=== PATIENT | male | born 1960 | race Caucasian/White ===

== ENCOUNTER 2017-06-19 18:22 | Emergency (ER) | payer BC, OTHER ==
[~2017-06-19] VITALS: Ht 180.3 cm; Wt 108.0 kg
[~2017-06-19 18:22] MED LIST: ALLOPURINOL300 MG PO; COLCRYS0.6 MG PO; DITROPAN XL5 MG PO; LEVAQUIN250 MG PO; PREDNISONE10 MG PO; TYLENOL WITH C1 EACH PO
--- OUTSIDE RECORDS SUMMARY | 2017-06-19 18:26 | XMS REPORT | Clinical Summary ---
Author Author [facility] Address Unknown Phone Unavailable Care Team Providers Care Jewelry Mechanic Name Role Phone Frederick Gold MD PCP Allergies Active Allergy Reactions Severity Noted Date Comments Penicillins 04/04/2017 Current Medications Prescription Sig. Disp. Refills Start End Date Status Date allopurinol (ZYLOPRIM) TK ONE AND SS TS PO ONCE 11 03/09/20 Active 300 MG tablet D 17 predniSONE (DELTASONE) 5 TK 1 T PO QD PRN 0 03/30/20 Active mg tablet 17 nabumetone (RELAFEN) 500 Take 1 tablet (500 mg 60 tablet 1 04/20/20 04/20/20 Active MG tablet total) by mouth 2 (two) 17 18 times a day. 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 04/04/2017 Procedure Pass Radiology after 06/18/2016 Family History Medical History Relation Name Comments Cancer Father Cancer Mother Relation Name Status Comments Father Mother Social History Tobacco Use Types Packs/Day Years Used Date Never Smoker Smokeless Tobacco: Never Used Alcohol Use Drinks/Week oz/Week Comments No Sex Assigned at Date Recorded Not on file Last Filed Vital Signs Vital Sign Reading Time Taken Blood Pressure 150/80 04/20/2017 11:22 AM FIREPROOF DOOR ASSEMBLER Pulse 75 04/20/2017 11:22 AM FIREPROOF DOOR ASSEMBLER Temperature - - Respiratory Rate - - Oxygen Saturation - - Inhaled Oxygen - - Concentration Weight 103 kg (228 lb) 04/20/2017 11:22 AM FIREPROOF DOOR ASSEMBLER Height 180.3 cm (5' 11") 04/20/2017 11:22 AM FIREPROOF DOOR ASSEMBLER Body Mass Index 31.8 04/20/2017 11:22 AM FIREPROOF DOOR ASSEMBLER Plan of Treatment Health Maintenance Due Date Last Done Comments COLONOSCOPY 2009 INFLUENZA VACCINE 12/05/2016 Results * MRI Knee Right Wo Contrast (04/11/2017 3:22 PM) Specimen Performing Laboratory [facility] [id number] [place] [address] Narrative EXAMINATION:MRI KNEE WO CONTRAST RIGHT CLINICAL HISTORY:M25.561 Pain in right knee, KNEE PAIN TECHNIQUE:Multiplanar multisequence MR imaging of lino was performed without contrast. COMPARISON:Radiograph, 04/04/2017 IMPRESSION: CRUCIATE LIGAMENTS: Interstitial abnormal signal in the middle one third of the PCL, relatively well-maintained proximally and distally, and a history of gout, is likely related to degeneration from gout arthropathy. Mild mucoid degeneration distally in the ACL. Extensive high-grade partial tearing of the popliteus tendon, with adjacent nodular synovitis likely on the basis of gout arthropathy. COLLATERAL LIGAMENTS: Mild MCL sprain. Mild to moderate sprain of the proximal attachment fibular collateral ligament. Remainder of the LCL complex well- maintained. MEDIAL COMPARTMENT: Maceration of the anterior peripheral margin of anterior horn medial meniscus. Truncation of the free edge centrally in the posterior horn indicating partial meniscectomy. No recurrent tear identified. Mild marginal osteophytosis. Deep chondral fissuring centrally in the weightbearing medial femoral condyle and several places contacting the cortical surface, though marrow signals are well-maintained. Less pronounced chondral fissuring in the medial tibial plateau. LATERAL COMPARTMENT: Type I intrasubstance degeneration of the posterior root attachment of lateral meniscus. No discrete tear identified. Marginal osteophytosis, and mild chondral fissuring, less pronounced than in the medial compartment. PATELLOFEMORAL COMPARTMENT:Focal partial-thickness chondral defect centrally in the lateral patellar facet measuring 12 mm transverse by 8 mm craniocaudal. Marrow signals are well-maintained. Less pronounced chondral fissuring elsewhere, and moderate marginal osteophytosis. EXTENSOR MECHANISM: Distal quadriceps tendinitis with mild partial thickness interstitial tearing partially visualized. Patellar tendon well-maintained. BONE MARROW: Cystic formation posteriorly and peripherally in the medial tibial plateau degenerative in etiology. Cystic formation peripherally in the lateral femoral condyle subjacent to the popliteus tendon origin related to the findings discussed above. 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 PERIARTICULAR SOFT TISSUES: Small to moderate joint effusion with nodular synovitis. Synovitis is most pronounced anteriorly and peripherally in the medial compartment. Cruz's cyst containing some internal debris or synovitis measuring 7 cm in length. SUMMARY: 1.Maceration of the medial meniscus anterior horn, and meniscectomy defect in the posterior horn, though without a recurrent tear identified. 2.Multifocal areas of chondromalacia, in a distribution as above 3.Findings as detailed above related to gout arthropathy. [facility]-[id number] Procedure Note Interface, Radiology Results Incoming - 04/11/2017 3:44 PM FIREPROOF DOOR ASSEMBLER EXAMINATION: MRI KNEE WO CONTRAST RIGHT CLINICAL HISTORY: M25.561 Pain in right knee, KNEE PAIN TECHNIQUE: Multiplanar multisequence MR imaging of the right knee was performed without contrast. COMPARISON: Radiograph, 04/04/2017 IMPRESSION: CRUCIATE LIGAMENTS: Interstitial abnormal signal in the middle one third of the PCL, relatively well-maintained proximally and distally, and a history of gout, is likely related to degeneration from gout arthropathy. Mild mucoid degeneration distally in the ACL. Extensive high-grade partial tearing of the popliteus tendon, with adjacent nodular synovitis likely on the basis of gout arthropathy. COLLATERAL LIGAMENTS: Mild MCL sprain. Mild to moderate sprain of the proximal attachment fibular collateral ligament. Remainder of the LCL complex well- maintained. MEDIAL COMPARTMENT: Maceration of the anterior peripheral margin of anterior horn medial meniscus. Truncation of the free edge centrally in the posterior horn indicating partial meniscectomy. No recurrent tear identified. Mild marginal osteophytosis. Deep chondral fissuring centrally in the weightbearing medial femoral condyle and several places contacting the cortical surface, though marrow signals are well-maintained. Less pronounced chondral fissuring in the medial tibial plateau. LATERAL COMPARTMENT: Type I intrasubstance degeneration of the posterior root attachment of lateral meniscus. No discrete tear identified. Marginal osteophytosis, and mild chondral fissuring, less pronounced than in the medial compartment. PATELLOFEMORAL COMPARTMENT: Focal partial-thickness chondral defect centrally in the lateral patellar facet measuring 12 mm transverse by 8 mm craniocaudal. Marrow signals are well-maintained. Less pronounced chondral fissuring elsewhere , and moderate marginal osteophytosis. EXTENSOR MECHANISM: Distal quadriceps tendinitis with mild partial thickness interstitial tearing partially visualized. Patellar tendon well-maintained. BONE MARROW: Cystic formation posteriorly and peripherally in the medial tibial plateau degenerative in etiology. Cystic formation peripherally in the lateral femoral condyle subjacent to the popliteus tendon origin related to the findings discussed above. 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 PERIARTICULAR SOFT TISSUES: Small to moderate joint effusion with nodular synovitis. Synovitis is most pronounced anteriorly and peripherally in the medial compartment. Cruz's cyst containing some internal debris or synovitis measuring 7 cm in length. SUMMARY: 1. Maceration of the medial meniscus anterior horn, and meniscectomy defect in the posterior horn, though without a recurrent tear identified. 2. Multifocal areas of chondromalacia, in a distribution as above 3. Findings as detailed above related to gout arthropathy. [facility]-[id number] * XR Knee 3 Vw Right (04/04/2017 3:30 PM) [facility] [address] [place] [address] Narrative X-rays of the right knee 3 views standing AP lateral sunrise view: X-rays right knee does show mild to moderate osteoarthritis medial compartment with some narrowing there but joint space is still reasonably spared there is mild to moderate changes patellofemoral compartment with mild spurring. after 06/18/2016 Insurance Payer Benefit Subscriber ID Type Phone Address Plan / Group BCBS BCBS OUT xxxxxxxxxxxxxxx PPO OF STATE Work: [id number] [place] [id number] Home:
[2017-06-19] MEDS ORDERED: HYDROCODONE/APAP 5MG-325MG TAB PO ONE (19:30)
[2017-06-19] MEDS ORDERED: CLINDAMYCIN PHOS 600 MG/ 4 ML VIAL IM ONE (20:00)
[2017-06-19 20:53] VITALS: BP 136/80
== END 2017-06-19 20:40 | disposition home or self-care (01) ==
LOC: FSED 18:22
DX: S67.194A Crushing injury of right ring finger, initial encounter (principal); S61.214A Laceration without foreign body of right ring finger without damage to nail, initial encounter; W23.0XXA Caught, crushed, jammed, or pinched between moving objects, initial encounter; Y92.009 Unspecified place in unspecified non-institutional (private) residence as the place of occurrence of the external cause
CPT/HCPCS: 96372; 99284

== ENCOUNTER 2017-10-10 13:59 | Inpatient (IN) | payer BC ==
[~2017-10-10] VITALS: Ht 180.3 cm; Wt 105.9 kg
--- OUTSIDE RECORDS SUMMARY | 2017-10-10 14:03 | XMS REPORT | Clinical Summary ---
Author Author [facility] Address Unknown Phone Unavailable Care Team Providers Care Wheel Inspector Name Role Phone Frederick Gold MD PCP [...] without tophus 04/04/2017 Procedure Pass Radiology after 10/09/2016 Family History Medical History Relation Name Comments Cancer Father Cancer Mother Relation Name Status Comments Father Mother Social History Tobacco Use Types Packs/Day Years Used Date Never Smoker Smokeless Tobacco: Never Used Alcohol Use Drinks/Week oz/Week Comments No Sex Assigned at Date Recorded Not on file Last Filed Vital Signs Vital Sign Reading Time Taken Blood Pressure 150/80 04/20/2017 11:22 AM GRAIN BROKER AND MARKET OPERATOR Pulse 75 04/20/2017 11:22 AM GRAIN BROKER AND MARKET OPERATOR Temperature - - Respiratory Rate - - Oxygen Saturation - - Inhaled Oxygen - - Concentration Weight 103 kg (228 lb) 04/20/2017 11:22 AM GRAIN BROKER AND MARKET OPERATOR Height 180.3 cm (5' 11") 04/20/2017 11:22 AM GRAIN BROKER AND MARKET OPERATOR Body Mass Index 31.8 04/20/2017 11:22 AM GRAIN BROKER AND MARKET OPERATOR Plan of Treatment Health Maintenance Due Date Last Done Comments COLON CANCER SCREENING 2009 SHINGRIX VACCINE (#1) 2009 INFLUENZA VACCINE 12/05/2017 Results * MRI Knee Right Wo Contrast (04/11/2017 3:22 PM) Specimen Performing Laboratory [facility] [address] [facility] [address] Narrative EXAMINATION:MRI KNEE WO CONTRAST RIGHT CLINICAL [...] as detailed above related to gout arthropathy. [facility]-[id number] Procedure Note Hm Interface, Radiology Results Incoming - 04/11/2017 3:44 PM GRAIN BROKER AND MARKET OPERATOR EXAMINATION: MRI KNEE WO CONTRAST RIGHT CLINICAL [...] as detailed above related to gout arthropathy. [facility]-[id number] * XR Knee 3 Vw Right (04/04/2017 3:30 PM) Specimen Performing Laboratory [facility] [address] [place] [address] Narrative X-rays of the right knee 3 views standing AP lateral sunrise view: X-rays right knee does show mild to moderate osteoarthritis medial compartment with some narrowing there but joint space is still reasonably spared there is mild to moderate changes patellofemoral compartment with mild spurring. after 10/09/2016 Insurance Payer Benefit Subscriber ID Type Phone Address Plan / Group BCBS BCBS OUT xxxxxxxxxxxxxxx PPO OF STATE Home:
--- OUTSIDE RECORDS SUMMARY | 2017-10-10 14:03 | XMS REPORT | Continuity of Care Document ---
Author Author [facility] Organization [facility] Address [address] [place] [address] Phone Unavailable Care Team Providers Care Compensation Supervisor Name Role Phone NO, PCP PCP Unavailable Insurance Providers Guarantor Janiya Leigh Address [address] [place] [address] Email PTDECLINED [facility] Codacy Other Policy Number [id number] Subscriber's Name Janiya Leigh Relationship 01 Group Number [id number] Group Name [facility] Effective Date 14 Advance Directives Directive Response Recorded Date/Time Does the patient have an advance directive? No 12/12/14 11:20pm If yes, is advance directive on file with [facility]? No 12/12/14 11:20pm If not on file with [facility] will patient provide a copy? No 12/12/14 11:20pm Do you have a Directive to Physician? No 06/19/17 7:31pm Do you have a Medical Power of Synchro Assembler? No 06/19/17 7:31pm Do you have an out of hospital Do Not Resuscitate Order? No 06/19/17 7:31pm Do you have any special needs we should be aware of? No 06/19/17 7:31pm Do you have a support person here with you today? No 06/19/17 7:31pm Did patient receive Notice of Privacy Practices? Yes 06/19/17 7:31pm Did patient receive patient rights and responsibilities? Yes 06/19/17 7:31pm Problems Medical Problem Onset Date Status Bilateral ureteral calculi 12/12/2014 Acute Bilateral ureteral obstruction 12/12/2014 Acute Medications Current Home Medications Medication Dose Units Route Directions Days Qty Instructions Start Date Acetaminophen With Codeine (Tylenol With Codeine #3 Tablet) 1 Each Tablet 300 Mg Oral Every 4 Hours as needed for Pain Allopurinol 300 Mg Tablet 450 Mg Oral Daily Colchicine (Colcrys) 0.6 Mg Tablet 0.6 Mg Oral Daily as needed for 30 Tab Levofloxacin (Levaquin) 250 Mg Tablet 250 Mg Oral Daily 30 Tab Oxybutynin Chloride (Ditropan Xl) 5 Mg Tab.er.24 10 Mg Oral Daily 30 Tab Prednisone 10 Mg Tab 10 Mg Oral Daily as needed for flare up of gout Social History Social History Problem Response Recorded Date/Time Onset Date Status Hx Psychiatric Problems No 12/12/2014 11:20pm Not Applicable Not Applicable Hx Eating Disorder No 10/01/2012 8:15pm Not Applicable Not Applicable Hx Substance Use Disorder No 10/01/2012 8:15pm Not Applicable Not Applicable Hx Depression No 10/01/2012 8:15pm Not Applicable Not Applicable Hx Alcohol Use No 10/01/2012 8:15pm Not Applicable Not Applicable Hx Substance Use Treatment No 10/01/2012 8:15pm Not Applicable Not Applicable Hx Physical Abuse No 10/01/2012 8:15pm Not Applicable Not Applicable Hospital Discharge Instructions No hospital discharge instruction information available. Plan of Care Discharge Date 06/19/17 8:40pm Disposition HOME, SELF-CARE Condition at Discharge Stable Instructions/Education Provided Laceration Forms Provided Work/School Excuse Prescriptions See Medication Section Additional Instructions/Education Keep area clean and dry. Elevate, for comfort. Apply antibiotic ointment liberally to the laceration, twice daily, and cover. Return here in 7-10 days for suture removal. Functional Status No functional status information available. Allergies, Adverse Reactions, Alerts Allergen Type Severity Reaction Status Last Updated Penicillin Allergy Unknown Active 01/29/09 Immunizations No immunization information available. Vital Signs Acute Vital Signs Vital Response Date/Time Pulse Pulse Rate (adult) 97 bpm (60 - 90) 06/19/2017 8:53pm Respiratory Rate 16 bpm (12 - 24) 06/19/2017 8:53pm Blood Pressure 136/80 mm Hg 06/19/2017 8:53pm Height 5 ft 11 in 06/19/2017 7:00pm Weight 238 lb 06/19/2017 7:00pm Body Mass Index 33.2 kg/m^2 06/19/2017 7:00pm Results No relevant diagnostic test, laboratory data and/or discharge summary information available. Procedures No procedure information available. Encounters Encounter Location Arrival/Admit Date Discharge/Depart Date Attending Provider Departed Emergency Room [facility] 06/19/17 6:22pm 8:40pm BRI MAXWELL MD
[2017-10-10] MEDS ORDERED: ASPIRIN 81 MG CHEW TAB PO ONE ×3 (14:15→22:30)
--- NOTE | 2017-10-10 15:10 | Diagnostic Imaging Report ---
PROCEDURE: Frontal and lateral views of the chest. COMPARISON: None. INDICATIONS: LOW HEART RATE, SOB FINDINGS: Lines/tubes: None. Lungs: Limited by low lung volumes. There is no evidence of pneumonia or pulmonary edema. Pleura: There is no pleural effusion or pneumothorax. Heart and mediastinum: The heart and the mediastinum are normal. Bones: No acute bony abnormality. IMPRESSION: 1. No acute cardiopulmonary disease. Dictated by: Eber Lynch M.D. on 10/10/2017 at 15:13 Electronically approved by: Eber Lynch M.D. on 10/10/2017 at 15:13
[2017-10-10 15:29] LABS: CLARITY,URINE CLEAR (CLEAR); COLOR,URINE YELLOW (YELLOW)
[2017-10-10 15:30] LABS: BILIRUBIN,URINE NEGATIVE (NEGATIVE); KETONES,URINE NEGATIVE (NEGATIVE); LEUKOCYTE ESTERASE ,URINE NEGATIVE (NEGATIVE); NITRITE,URINE NEGATIVE (NEGATIVE); PROTEIN,URINE DIPSTICK NEGATIVE (NEGATIVE); URINE UROBILINOGEN 0.2 mg/dL (0.2 - 1)
[2017-10-10 15:44] LABS: EPITHELIAL CELLS,URINE RARE /LPF; WBC,URINE (MAN) 0-5 /HPF (0-5)
[2017-10-10 15:47] LABS: BASOPHILS % 0.4 % (0.0-1.0); EOSINOPHILS # (AUTO) 0.3 (0.0-0.4); EOSINOPHILS % 3.7 % (0.0-6.0); HEMATOCRIT 39.8 % (38.2-49.6); LYMPHOCYTES # (AUTO) 2.3 (1.0-3.2); LYMPHOCYTES % 28.2 % (18.0-39.1); MEAN CORPUSCULAR HGB CONC 35.2 g/dL (31-35); MEAN CORPUSCULAR VOLUME 88.1 fL (81-99); MONOCYTES # (AUTO) 0.7 (0.2-0.8); MONOCYTES % 8.5 % (4.4-11.3); NEUTROPHILS # (AUTO) 4.7 (2.1-6.9); NEUTROPHILS % 58.7 % (38.7-80.0); PLATELET COUNT 282 x10e3/uL (140-360); RED BLOOD COUNT 4.52 x10e6/uL (4.3-5.7); RED CELL DISTRIBUTION WIDTH 12.7 % (11.7-14.4)
[2017-10-10 15:54] LABS: PROTHROMBIN TIME 12.4 seconds (11.9-14.5)
[2017-10-10 15:55] LABS: PARTIAL THROMBOPLASTIN TIME 30.1 seconds (23.8-35.5)
[2017-10-10 16:19] LABS: ALANINE AMINOTRANSFERASE 18 IU/L (0-55); ALBUMIN 3.8 g/dL (3.5-5.0); ALBUMIN/GLOBULIN RATIO 1.3 (0.8-2.0); ALKALINE PHOSPHATASE 50 IU/L (40-150); ANION GAP 7.9 mmol/L (8-16); BLOOD UREA NITROGEN 16 mg/dL (7-26); BUN/CREATININE RATIO 14 (6-25); CALCIUM 9.2 mg/dL (8.4-10.2); CARBON DIOXIDE 30 mmol/L (22-29); CHLORIDE 107 mmol/L (98-107); CREATINE KINASE 48 IU/L (30-200); CREATININE, SERUM 1.15 mg/dL (0.72-1.25); EST GLOMERULAR FILTRATION RATE > 60 ML/MIN (60-); GLUCOSE 103 mg/dL (74-118); POTASSIUM 3.9 mmol/L (3.5-5.1); SODIUM 141 mmol/L (136-145)
[2017-10-10] MEDS ORDERED: ONDANSETRON HCL 4 MG ORAL DISINTEGRATING TAB PO PRN (18:15)
[2017-10-10] MEDS ORDERED: NITROGLYCERIN 0.4 MG SUBL SL PRN (18:15)
--- OUTSIDE RECORDS SUMMARY | 2017-10-10 18:24 | XMS REPORT | Clinical Summary ---
Author Author [facility] Address Unknown Phone Unavailable Care Team Providers Care Conveyor Tender Name Role Phone Frederick Gold MD PCP [...] Taken Blood Pressure 150/80 04/20/2017 11:22 AM PUBLIC HOUSING INTERVIEWER Pulse 75 04/20/2017 11:22 AM PUBLIC HOUSING INTERVIEWER Temperature - - Respiratory Rate - - Oxygen Saturation - - Inhaled Oxygen - - Concentration Weight 103 kg (228 lb) 04/20/2017 11:22 AM PUBLIC HOUSING INTERVIEWER Height 180.3 cm (5' 11") 04/20/2017 11:22 AM PUBLIC HOUSING INTERVIEWER Body Mass Index 31.8 04/20/2017 11:22 AM PUBLIC HOUSING INTERVIEWER Plan of Treatment Health Maintenance Due Date Last Done Comments COLON CANCER SCREENING 2009 SHINGRIX VACCINE (#1) 2009 INFLUENZA VACCINE 12/05/2017 Results * MRI Knee Right Wo Contrast (04/11/2017 3:22 PM) Specimen Performing Laboratory [facility] [address] [facility] [place] [address] Narrative EXAMINATION:MRI KNEE WO CONTRAST RIGHT CLINICAL [...] as detailed above related to gout arthropathy. [facility]-[id number] Procedure Note Hm Interface, Radiology Results Incoming - 04/11/2017 3:44 PM PUBLIC HOUSING INTERVIEWER EXAMINATION: MRI KNEE WO CONTRAST RIGHT CLINICAL [...] as detailed above related to gout arthropathy. [facility]-[id number] * XR Knee 3 Vw Right (04/04/2017 3:30 PM) Specimen Performing Laboratory [facility] [address] [place] [address] Narrative X-rays of the right knee 3 [...]
--- OUTSIDE RECORDS SUMMARY | 2017-10-10 18:24 | XMS REPORT ---
[facility] Address Unknown Phone Unavailable Care Team Providers Care Service Desk Lead Name Role Phone TAYLER COOPER Unavailable Unavailable Problems This patient has no known problems. Allergies, Adverse Reactions, Alerts This patient has no known allergies or adverse reactions. Medications This patient has no known medications. Results Test Description Test Time Test Comments Text Results Atomic Results Result Comments CHEST 2 VIEWS 2017-10-10 15:13:00 [place] [address] Patient Name: ARIELA [facility] MR #: [id number] : 1960 Age/Sex: 57/M Req #: [id number] Adm Physician: Ordered by: MATA POLK SLOPE TENDER Report #: [id number] Location: ER Room/Bed: Procedure: [id number] DX/CHEST 2 VIEWS Exam Date: 10/10/17 Exam Time: 1430 REPORT STATUS: Signed PROCEDURE: Frontal and lateral views of the chest. COMPARISON: None. INDICATIONS: LOW HEART RATE, SOB FINDINGS: Lines/tubes: None. Lungs: Limited by low lung volumes. There is no evidence of pneumonia or pulmonary edema. Pleura: There is no pleural effusion or pneumothorax. Heart and mediastinum: The heart and the mediastinum are normal. Bones: No acute bony abnormality. IMPRESSION: 1. No acute cardiopulmonary disease. Dictated by: Eber Abad M.D. on 10/10/2017 at 15:13 Electronically approved by: Eber Abad M.D. on 10/10/2017 at 15:13 Dictated By: EBER ABAD MD 1513 Transcribed By: GUILLAUME on 10/10/17 1513 COPY TO: MATA POLK NP
--- NOTE | 2017-10-10 20:49 | History and Physical ---
CHIEF COMPLAINT: Shortness of breath. HISTORY OF PRESENT ILLNESS: Mr. Leigh is a 57-year-old male otherwise in good health. He was at physician's office today when he had ablation of his veins in the legs. Heart rate was checked and the heart rate was in the 40's and patient was complaining of shortness of breath so he was sent to the emergency room. He reports that the shortness of breath has been going on for the last week or so and it is progressively getting worse. He denies any chest pain, nausea, vomiting or diarrhea. REVIEW OF SYSTEMS: GENERAL: Denies any fever or chills. HEAD: Denies any head trauma. ENT: He denies any earache. CVS: Denies any chest pain. RESPIRATORY: Shortness of breath. GI: Denies any nausea or vomiting. Rest of the review systems are negative except as in history of present illness. PAST MEDICAL HISTORY: Kidney stones, knee surgery, vesicular ablation. FAMILY AND SOCIAL HISTORY: He has a Malhar. He is very active. He does not smoke, does not drink. PHYSICAL EXAM: VITAL SIGNS: Temperature 97, pulse of 60, blood pressure 142/80, respirations 18. HEENT: Normocephalic, atraumatic. Pupils are reactive. NECK: Supple with no JVD. Thyroid not enlarged. CHEST: Is clear to auscultation bilaterally. HEART: S1 and S2 audible. ABDOMEN: Soft, nontender. EXTREMITIES: No pedal edema. NEUROLOGIC: Awake and alert. LABS: White count of 8000, hemoglobin 14, platelets 282,000. Chemistry: Sodium 141, potassium 3.9, bicarb 30, BUN 16, creatinine 1.15. Chest x-ray is within normal limits. ASSESSMENT AND PLAN: 1. Mr. Leigh is a 57-year-old male who presented with shortness of breath, could be angina equivalent. Admit to observation. 2. Consult cardiology. 3. The patient will be discharged home once cleared by cardiology. Job#: [id number]
[2017-10-10 21:08] VITALS: BP_SYST 120; BP_SYST 140; BP_DIAS 62; BP_DIAS 79
[2017-10-10] MEDS ORDERED: ACETAMINOPHEN/CODEINE 300MG - 30MG TAB PO PRN (22:15)
[2017-10-10] MEDS ORDERED: COLCHICINE 0.6 MG TAB PO PRN (22:15)
[2017-10-10] MEDS ORDERED: IBUPROFEN 600 MG TAB PO PRN (22:15)
[2017-10-10] MEDS ORDERED: PREDNISONE 10 MG TAB PO PRN (22:15)
[2017-10-10 22:26] VITALS: BP 140/62
[2017-10-11 00:06] VITALS: BP 108/61
[2017-10-11 01:18] LABS: CREATINE KINASE 42 IU/L (30-200)
[2017-10-11 04:51] VITALS: BP 108/63
--- NOTE | 2017-10-11 07:07 | Diagnostic Imaging Report ---
PROCEDURE: CHEST SINGLE (PORTABLE) COMPARISON: None. INDICATIONS: BRADYCARDIA FINDINGS: Lung volumes are low. No focal airspace consolidation, pleural effusion, or pneumothorax. Cardiomediastinal contour and pulmonary vasculature are within normal limits for portable, AP technique and suboptimal inspiration. No acute osseous abnormalities. CONCLUSION: Low lung volumes without acute cardiopulmonary abnormality. Dictated by: Hernandez Bowers M.D. on 10/11/2017 at 7:09 Electronically approved by: Hernandez Bowers M.D. on 10/11/2017 at 7:09
[2017-10-11 07:23] LABS: BASOPHILS % 0.5 % (0.0-1.0); EOSINOPHILS # (AUTO) 0.3 (0.0-0.4); EOSINOPHILS % 5.2 % (0.0-6.0); HEMATOCRIT 38.4 % (38.2-49.6); HEMOGLOBIN 13.2 g/dL (14.0-18.0); LYMPHOCYTES # (AUTO) 2.7 (1.0-3.2); LYMPHOCYTES % 40.8 % (18.0-39.1); MEAN CORPUSCULAR HEMOGLOBIN 30.9 pg (28-32); MEAN CORPUSCULAR HGB CONC 34.4 g/dL (31-35); MEAN CORPUSCULAR VOLUME 89.9 fL (81-99); MONOCYTES # (AUTO) 0.6 (0.2-0.8); NEUTROPHILS # (AUTO) 2.9 (2.1-6.9); PLATELET COUNT 268 x10e3/uL (140-360); RED BLOOD COUNT 4.27 x10e6/uL (4.3-5.7); RED CELL DISTRIBUTION WIDTH 12.8 % (11.7-14.4)
[2017-10-11 07:31] LABS: ALANINE AMINOTRANSFERASE 17 IU/L (0-55); ALBUMIN 3.4 g/dL (3.5-5.0); ALBUMIN/GLOBULIN RATIO 1.3 (0.8-2.0); ANION GAP 10.2 mmol/L (8-16); BLOOD UREA NITROGEN 16 mg/dL (7-26); BUN/CREATININE RATIO 16 (6-25); CARBON DIOXIDE 27 mmol/L (22-29); CHLORIDE 108 mmol/L (98-107); CREATININE, SERUM 1.01 mg/dL (0.72-1.25); EST GLOMERULAR FILTRATION RATE > 60 ML/MIN (60-); GLUCOSE 87 mg/dL (74-118); POTASSIUM 4.2 mmol/L (3.5-5.1); SODIUM 141 mmol/L (136-145)
[2017-10-11 07:32] LABS: ALKALINE PHOSPHATASE 52 IU/L (40-150); CHOLESTEROL 130 MD/DL (0-199); HDL CHOLESTEROL 44 MG/DL (40-60); LDL CHOLESTEROL 66 MG/DL (60-130); TRIGLYCERIDES 98 MG/DL (0-149)
[2017-10-11 07:49] VITALS: BP 125/62
[2017-10-11] MEDS ORDERED: ASPIRIN 81 MG ENTERIC COATED PO SCH (09:00)
[2017-10-11] MEDS ORDERED: ALLOPURINOL 300 MG TAB PO SCH (09:00)
--- NOTE | 2017-10-11 09:10 | Cardiology Report ---
DATE OF STUDY: October 10, 2017 ECHOCARDIOGRAM M-MODE: Borderline dilated left atrium. Normal left ventricular wall thickness and contractility. Normal mitral and aortic valves. No pericardial effusion. SECTOR SCAN: Borderline dilated left atrium. Top normal aortic root size measuring 3.7 cm. Normal left ventricular wall thickness and contractility. Ejection fraction is approximately 50%. Mitral, aortic and tricuspid valves are grossly normal. There is no pericardial effusion. CARDIAC DOPPLER STUDY WITH COLOR: There is 1+ mitral regurgitation. Trace pulmonic and tricuspid regurgitation. Pulmonary artery systolic pressure estimated at 29 mmHg. CONCLUSIONS 1. Mild mitral regurgitation with borderline dilated left atrium. 2. Top normal aortic root size measuring 3.7 cm. 3. Trace tricuspid and pulmonic regurgitation. 4. Left ventricular ejection fraction is approximately 50%. Job#: [id number] cc:FREYA BA M.D.
[2017-10-11 09:59] VITALS: BP 125/62
[2017-10-11 10:12] LABS: CREATINE KINASE 39 IU/L (30-200)
--- NOTE | 2017-10-11 10:32 | Diagnostic Imaging Report ---
PROCEDURE: CT scan of the chest WITH intravenous contrast, using pulmonary embolus protocol. TECHNIQUE: The chest was scanned utilizing a multidetector helical scanner from the lung apex through the level of the adrenal glands after the IV administration of 100 cc of Isovue 370. Coronal and sagittal multiplanar reformations were obtained. COMPARISON: None. INDICATIONS: Shortness of breath. Lower extremity venous ablation procedure 10/10/2017. FINDINGS: Vasculature: The main pulmonary artery, right and left pulmonary arteries, and their visualized the lobar and segmental branches are patent, without filling defect. The pulmonary outflow tract is of normal caliber. There is mild ectasia of the ascending thoracic aorta (4.2 cm). Great vessel origins are normal in caliber and configuration. Lungs and Airways: Mild groundglass and reticular opacities in the dependent portions of the lower lobes compatible with subsegmental atelectasis. Trachea, mainstem bronchi, and the central lobar and segmental bronchi are patent. Pleura: No pleural effusion or pneumothorax. Heart and mediastinum: The visualized portions of the thyroid gland are normal. No pericardial effusion. No axillary, hilar or, or mediastinal lymphadenopathy. Soft tissues: No focal soft tissue abnormalities. Abdomen: Visualized portions of the liver, gallbladder, spleen, pancreas, and adrenals are normal. Bones: Multilevel degenerative disc changes of the lower cervical and thoracic spine. No osseous destructive lesions. IMPRESSION: No pulmonary embolus to the level of the segmental branch pulmonary arteries. 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 Dictated by: Hernandez Bowers M.D. on 10/11/2017 at 10:35 Electronically approved by: Hernandez Bowers M.D. on 10/11/2017 at 10:35
--- NOTE | 2017-10-11 11:34 | Consultation ---
DATE OF CONSULTATION: CARDIOLOGY CONSULTATION ATTENDING PHYSICIAN: Saturnino Tapia M.D. CLINICAL HISTORY: This is a 57-year-old white man admitted via the emergency room because of shortness of breath, most of which appears to be chronic. 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 He did not have any significant dyspnea with exertion a year ago, but now he does. He denies any chest pain, but does have history of indigestion for which he takes pantoprazole. When he rests, the discomfort is relieved. One of his friends had similar complaints and ended up with 3 stents in his coronary artery. On the day prior to admission, he apparently had vein ablation done by Dr. Del Castillo in [place]. He had bradycardia with heart rate in the 40s. He decided to come to the emergency room to get checked out and was admitted. PAST SURGICAL HISTORY: Remarkable for kidney stones, knee surgery, vein ablation. 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 Denies drinking or smoking. FAMILY HISTORY: Noncontributory. REVIEW OF SYSTEMS: Negative. PHYSICAL EXAMINATION VITALS: Stable. CARDIAC: Jugular veins are not distended. S1, S2 are regular. There is no appreciable murmur. LUNGS: Clear. ABDOMEN: Soft. Bowel sounds are present. EXTREMITIES: No cyanosis, clubbing or edema. LABORATORY STUDIES: Electrocardiogram showed no acute changes. Labs are normal. Chest x-ray was negative. IMPRESSION 1. Shortness of breath, particularly with exertion. Consider anginal equivalent. Also consider pulmonary embolism following vein ablation. 2. Status post recent vein ablation the day before. 3. Indigestion, consider angina. 4. History of gout. RECOMMENDATION: Consider stress testing. The patient, however, wants to wait until his legs heal up before undergoing stress testing. He preferred to do stress testing to chemical stress test, which also can be done on an outpatient basis. In the meantime, I recommend CT scan of the chest to rule out pulmonary embolism. Job#: [id number] cc:SATURNINO TAPIA M.D.
[2017-10-11] MEDS ORDERED: IOPAMIDOL 370 MG/ML 200 ML INFUS..BTL INJ ONE (11:57)
[2017-10-11] MEDS ORDERED: SODIUM CHLORIDE 0.9% 50ML 50 ML ONE (11:57)
[2017-10-11 11:58] VITALS: BP 105/55
--- NOTE | 2017-10-11 12:36 | Discharge Summary ---
FINAL DIAGNOSES 1. Chest pain and shortness of breath that is angina equivalent. 2. History of gout. ADMISSION HISTORY AND HOSPITAL COURSE: Mr. Leigh is a 57-year-old male. He presented to the emergency room with the complaint of shortness of breath. He had a venous ablation in a physician's office, and heart rate was low. So, he was sent to the emergency room. In the emergency room the patient was given oxygen and IV fluid. Dr. Hernandez was consulted. He evaluated the patient and recommended CTA of the chest to rule out PE, which was negative. Patient will be discharged home to follow up with him to do a stress test as an outpatient. Discharge medication list reviewed. FREYA BA MD Job#: [id number] EV
== END 2017-10-11 12:27 | disposition home or self-care (01) | DRG 311 ==
LOC: ER 13:59 → ERHOLD 18:20 → MED/SURG2 19:00
PROVIDERS: ADMIT Internal Medicine; ATTEND Internal Medicine
DX: I20.9 Angina pectoris, unspecified (principal); M10.9 Gout, unspecified; K30 Functional dyspepsia; R00.1 Bradycardia, unspecified; Z98.890 Other specified postprocedural states
CPT/HCPCS: 36415; 71045; 71046; 71260; 80053; 80061; 81001; 82550; 82553; 84443; 84484; 85025; 85610; 85730; 87086; 93005; 93306; 99284; Q9967

== ENCOUNTER 2019-02-12 16:50 | Observation (INO) | payer BC ==
[~2019-02-12] VITALS: Ht 180.3 cm; Wt 107.1 kg
[2019-02-12] MEDS ORDERED: MORPHINE SULFATE INJ 4 MG/ML INJ 1ML IV STA (17:05)
[2019-02-12] MEDS ORDERED: ONDANSETRON HCL INJ 2MG/ML 2ML 2 MG/ML VIAL IV STA (17:05)
[2019-02-12] MEDS ORDERED: SODIUM CHLORIDE 0.9% 1000ML 1,000 ML IV STA (17:05)
[2019-02-12] MEDS ORDERED: KETOROLAC TROMETHAMINE 30 MG/ML VIAL IV STA (17:05)
[2019-02-12 17:44] LABS: BASOPHILS # (AUTO) 0.1 (0.0-0.1); BASOPHILS % 0.6 % (0.0-1.0); EOSINOPHILS # (AUTO) 0.3 (0.0-0.4); EOSINOPHILS % 2.9 % (0.0-6.0); HEMATOCRIT 42.5 % (38.2-49.6); HEMOGLOBIN 14.4 g/dL (14.0-18.0); LYMPHOCYTES % 34.9 % (18.0-39.1); MEAN CORPUSCULAR HEMOGLOBIN 30.2 pg (28-32); MEAN CORPUSCULAR HGB CONC 33.9 g/dL (31-35); MEAN CORPUSCULAR VOLUME 89.1 fL (81-99); MONOCYTES # (AUTO) 0.7 (0.2-0.8); MONOCYTES % 8.3 % (4.4-11.3); NEUTROPHILS # (AUTO) 4.6 (2.1-6.9); PLATELET COUNT 312 x10e3/uL (140-360); RED BLOOD COUNT 4.77 x10e6/uL (4.3-5.7); RED CELL DISTRIBUTION WIDTH 12.1 % (11.7-14.4)
[2019-02-12 17:46] LABS: BILIRUBIN,URINE NEGATIVE (NEGATIVE); CLARITY,URINE SL CLOUDY (CLEAR); COLOR,URINE YELLOW (YELLOW); KETONES,URINE NEGATIVE (NEGATIVE); LEUKOCYTE ESTERASE ,URINE NEGATIVE (NEGATIVE); NITRITE,URINE NEGATIVE (NEGATIVE); PROTEIN,URINE DIPSTICK NEGATIVE (NEGATIVE); URINE UROBILINOGEN 0.2 mg/dL (0.2 - 1)
[2019-02-12 18:01] LABS: BACTERIA,URINE FEW /HPF
[2019-02-12 18:04] LABS: ALBUMIN 4.2 g/dL (3.5-5.0); ALBUMIN/GLOBULIN RATIO 1.4 (0.8-2.0); ANION GAP 10.3 mmol/L (8-16); CALCIUM 9.9 mg/dL (8.4-10.2); CREATININE, SERUM 1.56 mg/dL (0.72-1.25); POTASSIUM 4.3 mmol/L (3.5-5.1)
--- NOTE | 2019-02-12 18:05 | Diagnostic Imaging Report ---
EXAMINATION: CT of the abdomen and pelvis without contrast. TECHNIQUE: Helical CT images of the abdomen and pelvis were performed from the lung bases to the lesser trochanters. No intravenous contrast was given per renal stone protocol. Coronal and sagittal reformatted images were obtained. Dose modulation, iterative reconstruction, and/or weight based adjustment of the mA/kV was utilized to reduce the radiation dose to as low as reasonably achievable. COMPARISON: None. CLINICAL HISTORY:Pain DISCUSSION: ABSENCE OF INTRAVENOUS CONTRAST DECREASES SENSITIVITY FOR DETECTION OF FOCAL LESIONS AND VASCULAR PATHOLOGY. ABDOMEN/PELVIS: LOWER THORAX: Unremarkable. HEPATOBILIARY:No focal hepatic lesions. No biliary ductal dilation. The gallbladder is normal. SPLEEN: No splenomegaly. PANCREAS: No focal masses or ductal dilatation. ADRENALS: No adrenal nodules. KIDNEYS/URETERS: Hydronephrosis of the right kidney with stranding secondary to a right distal ureteral calculus measuring 3.5 mm. Punctate calculus left kidney PELVIC ORGANS/BLADDER: The bladder is normal. PERITONEUM/RETROPERITONEUM: No free air or fluid. LYMPH NODES: No intra-abdominal,retroperitoneal, pelvic or inguinal lymphadenopathy. VESSELS: Limited evaluation. GI TRACT: No distention or wall thickening. BONES AND SOFT TISSUES: No bony destructive lesions. No soft tissue abnormalities. IMPRESSION: Obstructing 3.5 mm calculus in the distal right ureter Signed by: Dr. Kamran Espinoza M.D. on 02/12/2019 6:02 PM
[2019-02-12] MEDS ORDERED: HYDROMORPHONE 1MG/1ML INJ IV PRN (18:30)
[2019-02-12] MEDS ORDERED: ONDANSETRON HCL INJ 2MG/ML 2ML 2 MG/ML VIAL IV PRN (18:30)
[2019-02-12] MEDS ORDERED: MORPHINE SULFATE 2 MG/ML SYR 1ML IV PRN (18:30)
[2019-02-12] MEDS ORDERED: MORPHINE SULFATE INJ 4 MG/ML INJ 1ML IV PRN (18:30)
--- NOTE | 2019-02-12 19:12 | NUR ---
SYDNEY AUGUST AT PTS BEDSIDE TO DISCUSS POC AND ADMISSION
[2019-02-12] MEDS ORDERED: MORPHINE SULFATE 2 MG/ML SYR 1ML IV STA (19:52)
[2019-02-12] MEDS: SODIUM CHLORIDE 0.9% 1000ML 1,000 ML IV SCH (19:57)
[2019-02-12 20:23] VITALS: BP_SYST 113; BP_SYST 125; BP_DIAS 80
--- NOTE | 2019-02-12 20:23 | NUR ---
RECEIVED PATIENT FROM ED. PATIENT TRANSFERRED INDEPENDENTLY FROM STRETCHER TO BED. A&OX3. REPORTS PAIN IN R FLANK IS 2/10 OR LESS D/T RECEIVING PAIN MEDS RIGHT BEFORE TRANSFER. LUNG SOUNDS CLEAR. BOWEL SOUNDS ACTIVE, LAST BM THIS MORNING. NO EDEMA NOTED. R AC 18G IV ASYMPTOMATIC, INTACT, AND PATENT, NS @125 ML/HR. AT BEDSIDE. EXPLAINED POC AND NEED TO USE URINAL TO URINATE SO URINE CAN BE STRAINED. EXPLAINED NPO AFTER MIDNIGHT. PATIENT VERBALIZED UNDERSTANDING. NO S&S OF DISTRESS AT THIS TIME. BED LOCKED IN LOWEST POSITION, SIDE RAILS UPX2, CALL LIGHT IN REACH.
[2019-02-12 21:07] VITALS: BP 125/80
[2019-02-13] VITALS (8 sets, daily range): BP systolic 106–148; BP diastolic 50–73
[2019-02-13] MEDS: SODIUM CHLORIDE 0.9% 1000ML 1,000 ML IV SCH ×3 (04:17→18:18)
[2019-02-13 05:26] LABS: BASOPHILS % 0.4 % (0.0-1.0); EOSINOPHILS # (AUTO) 0.2 (0.0-0.4); EOSINOPHILS % 3.1 % (0.0-6.0); HEMATOCRIT 38.2 % (38.2-49.6); HEMOGLOBIN 13.1 g/dL (14.0-18.0); LYMPHOCYTES # (AUTO) 2.7 (1.0-3.2); LYMPHOCYTES % 34.9 % (18.0-39.1); MEAN CORPUSCULAR HEMOGLOBIN 30.7 pg (28-32); MEAN CORPUSCULAR HGB CONC 34.3 g/dL (31-35); MEAN CORPUSCULAR VOLUME 89.5 fL (81-99); MONOCYTES # (AUTO) 0.7 (0.2-0.8); MONOCYTES % 9.7 % (4.4-11.3); NEUTROPHILS % 51.6 % (38.7-80.0); PLATELET COUNT 227 x10e3/uL (140-360); RED BLOOD COUNT 4.27 x10e6/uL (4.3-5.7)
[2019-02-13 05:44] LABS: ALBUMIN 3.2 g/dL (3.5-5.0); ALBUMIN/GLOBULIN RATIO 1.3 (0.8-2.0); ANION GAP 10.1 mmol/L (8-16); CALCIUM 8.5 mg/dL (8.4-10.2); CREATININE, SERUM 1.4 mg/dL (0.72-1.25); POTASSIUM 4.1 mmol/L (3.5-5.1)
--- NOTE | 2019-02-13 06:40 | NUR ---
rounded with roll panner nurse, patient aware of change and in no distress. call mora within reach and bed in lowest position.
--- NOTE | 2019-02-13 13:45 | NUR ---
patient called and stated he had passed a stone. stone collected and MD notified.
--- NOTE | 2019-02-13 15:23 | Diagnostic Imaging Report ---
Abdomen, 1 view. History: Passed renal stone. Comparison: CT abdomen 02/12/2019. Findings: Air is scattered throughout nondilated small and large bowel. Multiple calcified phleboliths are present within the pelvis bilaterally. The small stone seen in the distal right ureter on prior CT at level of S1 is not visible on this exam. The osseous structures are intact. IMPRESSION: Non-specific bowel gas pattern. No visible ureteral stone. Signed by: Charbel Loomis on 02/13/2019 3:19 PM
--- NOTE | 2019-02-13 16:45 | NUR ---
patient had KUB scan that showed the stone is no longer seen. Patient is wanting to go home. Notified Dr Galvez of the KUB results, and per MD he wants to see the stone before he discharges the patient. notified patient that orders will be entered after the doctor rounds again per MD.
--- NOTE | 2019-02-13 19:00 | NUR ---
rounded with equipment hire manager nurse, patient aware of change and in no distress with at bedside. call mora within reach and bed in lowest position.
--- NOTE | 2019-02-13 19:44 | NUR ---
Patient is upset that he will not be discharge tonight. He states to the nurse it's either you remove this IV or I'll pull it myself because I'm not staying another night. Paged Dr. Galvez. spoke to the patient. No more complains from the patient thereafter.
[2019-02-14 00:31] VITALS: BP 103/53
[2019-02-14] MEDS: SODIUM CHLORIDE 0.9% 1000ML 1,000 ML IV SCH ×2 (02:18→03:19)
[2019-02-14 04:00] VITALS: BP 129/74
[2019-02-14 05:38] LABS: BASOPHILS % 0.3 % (0.0-1.0); EOSINOPHILS # (AUTO) 0.3 (0.0-0.4); EOSINOPHILS % 5.3 % (0.0-6.0); HEMATOCRIT 37.5 % (38.2-49.6); HEMOGLOBIN 12.8 g/dL (14.0-18.0); LYMPHOCYTES % 31.8 % (18.0-39.1); MEAN CORPUSCULAR HEMOGLOBIN 30.5 pg (28-32); MEAN CORPUSCULAR HGB CONC 34.1 g/dL (31-35); MEAN CORPUSCULAR VOLUME 89.3 fL (81-99); MONOCYTES # (AUTO) 0.7 (0.2-0.8); MONOCYTES % 10.5 % (4.4-11.3); NEUTROPHILS # (AUTO) 3.3 (2.1-6.9); NEUTROPHILS % 51.8 % (38.7-80.0); PLATELET COUNT 224 x10e3/uL (140-360); RED CELL DISTRIBUTION WIDTH 12.1 % (11.7-14.4)
[2019-02-14 05:55] LABS: ANION GAP 12.2 mmol/L (8-16); BLOOD UREA NITROGEN 16 mg/dL (7-26); BUN/CREATININE RATIO 14 (6-25); CALCIUM 8.7 mg/dL (8.4-10.2); CARBON DIOXIDE 25 mmol/L (22-29); CHLORIDE 109 mmol/L (98-107); CREATININE, SERUM 1.11 mg/dL (0.72-1.25); EST GLOMERULAR FILTRATION RATE > 60 ML/MIN (60-); GLUCOSE 98 mg/dL (74-118); POTASSIUM 4.2 mmol/L (3.5-5.1); SODIUM 142 mmol/L (136-145)
[2019-02-14 07:26] VITALS: BP 143/80
[2019-02-14 09:24] VITALS: BP 143/80
[2019-02-14 09:25] VITALS: BP 143/80
--- NOTE | 2019-02-14 09:26 | NUR ---
Pt awaiting to be discharged this morning. Pt stating "I am not going to have surgery today, I want to go home."
--- NOTE | 2019-02-14 10:02 | NUR ---
MD Casarez at bedside, stated to discharge pt home.
== END 2019-02-14 10:05 | disposition home or self-care (01) ==
LOC: ER 16:50 → INTOOBSV 19:00 → ERHOLD 19:00 → MED/SURG 20:23
DX: N13.2 Hydronephrosis with renal and ureteral calculous obstruction (principal); Z87.442 Personal history of urinary calculi; Z88.0 Allergy status to penicillin; M10.9 Gout, unspecified; N17.9 Acute kidney failure, unspecified; D64.9 Anemia, unspecified; R31.29 Other microscopic hematuria
CPT/HCPCS: 36415 ×3; 74018; 74176; 80048; 80053 ×2; 81001; 83970; 84550; 85025 ×3; 87086; 88300; 99284; G0378 ×3; J1885; J2270 ×3; J2405; J7030 ×3